=== PATIENT | female | born 1940 | race Caucasian/White ===

== ENCOUNTER 2019-07-06 13:11 | Inpatient (IN) | payer OTHER ==
[~2019-07-06] VITALS: Ht 162.5 cm; Wt 91.6 kg
--- NOTE | ~2019-07-06 | PR ---
[place], [place] PROGRESS NOTE NAME: JENNIFER TAVERAS UNIT #: [id number] ROOM: 315 DOCTOR: EVELYN SANTOS MD BIRTHDATE: [birth year] DOS: 07/10/2019 CHIEF COMPLAINT: "I think the bugs are getting worse." SUMMARY OF THE VISIT: The patient was interviewed as she was resting quietly in bed. She reported that she did not want to get up for breakfast or get anything to drink. She feels that the bugs are getting worse and they are trying to burst out of her skin. They no longer are in her eyes, but in her breast and her legs and are trying to cut off the circulation in her legs. MENTAL STATUS: She is alert and oriented with time gaps. Mood does seem to be overwhelmingly depressed and markedly delusional, almost fixated. Memory does have minor gaps. PLAN: I will increase the Zyprexa from 5 mg in the morning to 5 mg in the morning and at night, maintain Remeron, maintain Periactin and Vistaril. Continue to engage in individual and larios milieu activity, returning to the least restrictive environment when psychiatrically stable. EVELYN SANTOS MD CM:PNTRANS 1 33 EVELYN SANTOS MD 07/10/192032 interface
--- NOTE | ~2019-07-06 | PR ---
[place], [place] PROGRESS NOTE NAME: JENNIFER TAVERAS UNIT #: [id number] ROOM: 315 DOCTOR: EVELYN SANTOS MD BIRTHDATE: [birth year] DOS: 07/11/2019 CHIEF COMPLAINT: "I could use some more of that Nu Skin, but overall I think I'm better." SUMMARY OF THE VISIT: The patient was interviewed as she was sitting at the edge of the ____. She engaged readily in conversation and was fairly engaging. She did report on a positive note, she feels that the itching from the bugs is much less and overall the torment she feels because of the bug seems to have lessened. She is cautiously optimistic. MENTAL STATUS: She is alert and oriented with some time gaps. Mood does seem to be more euthymic. Affect is more appropriate. There is no jennifer, hypomania or gross psychosis. Memory has minor gaps. PLAN: I will go ahead and order Benadryl cream t.i.d. She requests some Nu Skin, will talk to nursing about this. We will continue her current psychotropic regimen, continue to engage in individual and larios milieu activity, returning to the least restrictive environment when psychiatrically stable. EVELYN SANTOS MD CM:PNTRANS [id number] EVELYN SANTOS MD 07/12/19 0233 interface
--- NOTE | ~2019-07-06 | WRIGHTHP ---
[place], [place] PATIENT HISTORY AND PHYSICAL EXAM [id number] UNIT #: [id number] ROOM: 315 DOCTOR: EVELYN SANTOS MD BIRTHDATE: [birth year] DOS: 07/08/2019 INITIAL PSYCHIATRIC EVALUATION CHIEF COMPLAINT: Oh, these bugs are horrible. They are all over my skin." HISTORY OF PRESENT ILLNESS: This is a 79-year-old white female who is a patient of Vineet Enrique, a nurse practitioner from [facility]. The patient was sent in because of ongoing tactile hallucinations. These have been ongoing now for many, many months. The patient is scratching herself almost to the point of bleeding and has multiple scabs and excoriations along her upper arms and her right breast. The patient has had multiple medication trials, none of which have impacted positively on stopping the behaviors. The patient does also endorse significant depression as well as ongoing anxiety because of the bugs. She is admitted now to rule out organic factors, to stabilize on medication, to engage in individual and larios milieu activity, returning to the least restrictive environment when psychiatrically stable. PAST MEDICAL HISTORY: Remarkable for fibromyalgia, hypertension, obesity and depression and anxiety. SOCIAL HISTORY: She does not drink alcohol, use illicit drugs or smoke cigarettes. ALLERGIES: She lists allergies to AMOXICILLIN, ISOSORBIDE, ATORVASTATIN, AND PROZAC. STRENGTHS: Ambulatory good verbal skills. WEAKNESSES: Poor coping skills, chronic psychiatric issues. MENTAL STATUS: She is alert and oriented to person, place and time. Mood does seem to be overwhelmingly depressed with anxious overtones and she is definitely experiencing significant tactile hallucinations. She seems very distraught and upset by the whole thing. Memory is intact. DIAGNOSIS: Major depression, recurrent with psychotic features. PLAN: I have done routine screening examinations which revealed a vitamin B12 level low at 237 and a vitamin D level low at 18.9. I will treat with vitamin D 5000 International Units daily and vitamin B12 injection 1000 mcg a month. I did start her on Periactin 4 mg t.i.d. and maintain her on low dose Atarax, which I will now increase to 50 mg q.i.d. We will engage in individual and larios milieu activity, returning to the least restrictive environment when psychiatrically stable. [place], [place] PATIENT HISTORY AND PHYSICAL EXAM NAME: JENNIFER TAVERAS UNIT #: [id number] ROOM: [facility] DOCTOR: EVELYN SANTOS MD BIRTHDATE: [birth year] EVELYN SANTOS MD CM:HISPHYS:PATIENT HISTORY AND PHYSICAL EXAMINATION 7 6 EVELYN SANTOS MD 07/08/19926 interface
--- NOTE | ~2019-07-06 | PR ---
[place], [place] PROGRESS NOTE NAME: JENNIFER TAVERAS UNIT #: [id number] ROOM: 315 DOCTOR: EVELYN SANTOS MD BIRTHDATE: [birth year] DOS: 07/13/2019 INTERVAL NOTE CHIEF COMPLAINT: "I think I am feeling a little better today." SUMMARY OF THE VISIT: The patient was interviewed as she was finishing her breakfast. She stopped and engaged in conversation. She seems to be yo-yoing in her responses, now stating that she is feeling better than the day before. She denies any side effects from the medicines themselves. We talked at length about changing some meds to fine tune things and she agreed. MENTAL STATUS: She is alert and oriented with some time gaps. Mood does seem to be strongly trending towards euthymia. Affect is much more appropriate. There is no jennifer, hypomania, or gross psychosis. Memory has some gaps. PLAN: I will discontinue her straight Ativan in lieu of Klonopin 1 mg t.i.d. My hope is that the longer half-life of the Klonopin will build up and maintain a consistent blood level, decreasing some of the anxiety and some of the symptoms surrounding the bug infestation delusion. We will continue to engage in individual and larios milieu activity, returning to the least restrictive environment when stable. EVELYN SANTOS MD CM:PNTRANS [id number] EVELYN SANTOS MD 07/13/19 1032 interface
--- NOTE | ~2019-07-06 | DS ---
[place], [place] DISCHARGE SUMMARY NAME: JENNIFER TAVERAS [facility] #: [id number] UNIT #: [id number] ROOM: 315 DOCTOR: EVELYN SANTOS MD BIRTHDATE: [birth year] DOS: 07/14/2019 CHIEF COMPLAINT: "Oh, these bugs are horrible. They are all over my skin." HISTORY OF PRESENT ILLNESS: This is a 79-year-old white female who is a patient of Vineet Enrique, a nurse practitioner from [facility]. The patient was sent into the [facility] because of ongoing visual and tactile hallucinations. These have been ongoing for many, many months. Despite multiple medication changes during this period of time, these symptoms have remained very tenacious and unwilling. The patient has been scratching herself to the point of bleeding and multiple scabs and excoriations all over her upper arms and her right breast. The patient has been feeling overwhelmingly depressed as well as anxious because of this and has not been able to function well because she is debilitated with this delusion. She is admitted now to rule out any organic factors to attempt to stabilize on medication, to engage in individual and larios milieu activity, returning to the least restrictive environment when psychiatrically stable. SUMMARY OF THE HOSPITAL COURSE: The patient was admitted to the unit where routine screening examinations revealed a vitamin B12 level that was low at 237 as well as a vitamin D level that was low at 18.9, vitamin D 5000 International Units daily and vitamin B12 injection 1000 mcg a month was given. She was started initially on Periactin 4 mg t.i.d., which was maintained with hydroxyzine 50 mg q.i.d. Subsequently, she was started on Remeron 15 mg at bedtime and Zyprexa 5 mg at bedtime. Remeron was maintained at this dose, but the Zyprexa was gradually increased to 5 mg twice a day and the Periactin was likewise increased to 4 mg q.i.d. The hope was that the antianxiety as well as antihistaminic effects would decrease any skin response to her scratching and prevent this vicious cycle from occurring. The antidepressant and the antipsychotic were utilized to break the psychotic symptoms and decrease her horrible negative cycle. Subsequently, she was started on Klonopin to take the place of a short-acting benzo and almost immediately had a benefit from the Klonopin. She herself mentioned that her daughter had a very positive response to the Klonopin and she felt that the Klonopin relax her enough that she was able to focus away from the bugs. She voiced a readiness and a willingness to go home, stating that overall she felt that the bugs had lessened and the itching and scratching had also lessened. She voiced no side effects from the medicines, noting no sedation or somnolence, no extrapyramidal symptoms or tardive dyskinesia. MENTAL STATUS AT DISCHARGE: She is alert and oriented to person, place, and time. Mood is euthymic. Affect is appropriate. There is no jennifer, hypomania or psychosis at this time. Short-term memory has mild gaps, but for the most part she is intact. FINAL DIAGNOSIS: Major depression, recurrent with psychotic features, severe. PLAN: All of her prescriptions have been e-scribed to [facility] in [place] except her Klonopin, which was printed. She will have followup in the community with Vineet Enrique at [facility]. At the time of discharge, she [place], [place] DISCHARGE SUMMARY NAME: JENNIFER TAVERAS UNIT #: [id number] ROOM: 315 DOCTOR: EVELYN SANTOS MD BIRTHDATE: [birth year] was both psychiatrically and medically stable. EVELYN SANTOS MD CM:DISCHARG 8 09 EVELYN SANTOS MD 07/14/19 180 interface
--- NOTE | ~2019-07-06 | PR ---
[place], [place] PROGRESS NOTE NAME: JENNIFER TAVERAS UNIT #: [id number] ROOM: 315 DOCTOR: EVELYN SANTOS MD BIRTHDATE: [birth year] DOS: 07/12/2019 CHIEF COMPLAINT: "Look, see this blue spot, this is one of the bugs trying to come out." SUMMARY OF THE VISIT: The patient was interviewed as she was sitting sipping on tea. She reported that the bugs are still present. She at one point stated she was feeling better and now feels the things are worse. MENTAL STATUS: She is alert and oriented. Mood does seem to be slightly trending towards euthymia and affect is more appropriate. There is no jennifer, hypomania. There is still this delusion regarding the bugs. PLAN: I will discontinue the Benadryl cream and try Caladryl. We will maintain her current psychotropics include the Remeron, the Zyprexa, the Periactin and the Vistaril. We will monitor and support. EVELYN SANTOS MD CM:PNTRANS 0925 1022 EVELYN SANTOS MD 07/12/19 1021 interface
--- NOTE | ~2019-07-06 | EKG ---
[place], [place] ELECTROCARDIOGRAM REPORT NAME: JENNIFER TAVERAS UNIT #: [id number] ROOM: 315 DOCTOR: SPENCER DRAFT REPORT BIRTHDATE: [birth year] [facility] Test Date: 2019-07-08 Test Time: 09:32:48 Pat Name: JENNIFER TAVERAS Department: Room: [facility] 2 Gender: F Customer Service Advisor: : [id number] Requested By: LUCÍA SOLIZ Order Number: [id number] Reading MD: Ramin Mo MD Measurements Intervals [place] Rate: 60 P: 0 NM: 195 QRS: 5 QRSD: 91 T: 36 QT: 423 QTc: 423 Interpretive Statements Sinus rhythm Atrial premature complex Electronically Signed On 07-08-2019 13:41:22 PDT by Ramin Mo MD CM:EKGRPT:ELECTROCARDIOGRAM REPORT [id number] LUCÍA MAXWELL DRAFT REPORT LUCÍA SOLIZ DO
[2019-07-06] MEDS ORDERED: ARICEPT5 M1 PO (14:17)
[2019-07-06] MEDS ORDERED: ATIVAN2 M1 PO (14:18)
[2019-07-06] MEDS ORDERED: NATURE'S BLEND500 M1 PO (14:26)
[2019-07-06] MEDS ORDERED: SALINE NASAL14.1 GM NAS (14:27)
[2019-07-06] MEDS ORDERED: ZANTAC 150150 MG PO (14:28)
[2019-07-06] MEDS ORDERED: TRIAMTERENE-HC1 EAC1 PO (14:28)
[2019-07-06] MEDS ORDERED: VITAMIN D22000 UNIT PO (14:29)
[2019-07-06] MEDS ORDERED: LOVAZA1 GM PO (14:29)
[2019-07-06] MEDS ORDERED: ENALAPRIL10 MG PO (14:29)
[2019-07-06] MEDS ORDERED: ASPIR LOW81 MG PO (14:30)
[2019-07-06] MEDS ORDERED: ZOLOFT100 MG PO (14:30)
[2019-07-06] MEDS ORDERED: IRON325 M1 PO (14:31)
[2019-07-07] MEDS ORDERED: VASCEPA1 G1 PO (14:45)
[2019-07-07] MEDS ORDERED: OMEPRAZOLE MAGN20 MG PO (14:47)
[2019-07-07 14:52] VITALS: BP 125/67
[2019-07-07 16:51] VITALS: BP 125/67
[2019-07-07 17:29] LABS: BASO % 0.6 % (0.0-1.0); EOS # 0.1 10*3/uL (0.0-0.4); EOS % 1.8 % (1.0-4.0); HEMATOCRIT 30.6 % (37.0-47.0); HEMOGLOBIN 8.8 g/dl (12.0-16.0); LYMPH # 2.6 10*3/uL (1.3-4.4); LYMPH % 38.7 % (27.0-41.0); MEAN CELL VOLUME 78.7 fl (81.0-99.0); MEAN CORPUSCULAR HGB 22.6 pg (27.0-31.0); MEAN CORPUSCULAR HGB CONC 28.8 g/dl (33.0-37.0); MEAN PLATELET VOLUME 9.9 fl (9.6-12.3); MONO # 0.5 10*3/uL (0.1-1.0); MONO % 8.2 % (3.0-9.0); NEUT # 3.3 10*3/uL (2.3-7.9); NEUT % 50.5 % (47.0-73.0); PLATELET COUNT AUTOMATED 265 10*3/uL (130-400); RED BLOOD COUNT 3.89 10*6/uL (4.10-5.10); RED CELL DISTRI WIDTH 21.8 % (0-14.5); WHITE BLOOD COUNT 6.6 10*3/uL (4.8-10.8)
[2019-07-07 18:00] LABS: ALBUMIN 3.4 gm/dl (3.1-4.5); ALKALINE PHOSPHATASE 81 U/L (45-117); BUN 9 mg/dl (7-24); CHLORIDE 107 mmol/L (98-107); POTASSIUM 3.5 mmol/L (3.5-5.1); SGOT/AST 13 IU/L (3-35); SGPT/ALT 13 U/L (12-78); SODIUM 141 mmol/L (136-145); TOTAL PROTEIN 6.9 gm/dL (6.4-8.2)
[2019-07-07 18:09] LABS: VITAMIN D, 25-HYDROXY 18.9 ng/mL (30-100)
[2019-07-07 19:49] VITALS: BP 117/62
[2019-07-08 06:46] LABS: CHOLESTEROL 185 mg/dL (<200); TRIGLYCERIDES 71 mg/dl (<150); VLDL CHOLESTEROL 14 mg/dL (6-40)
[2019-07-08 06:47] LABS: HDL CHOLESTEROL 53 mg/dl (40-60); LDL CHOLESTEROL 118 mg/dL (9-159)
[2019-07-08 07:52] VITALS: BP 127/72
[2019-07-08] MEDS ORDERED: PROAIR HFA8.5 GM INH (16:28)
[2019-07-08] MEDS ORDERED: NITROSTAT0.4 MG SL (16:30)
[2019-07-08 18:07] LABS: BILIRUBIN NEGATIVE (NEGATIVE); BLOOD 1+ (NEGATIVE); CLARITY SL CLOUDY (CLEAR); COLOR YELLOW (YELLOW); GLUCOSE NEGATIVE (NEGATIVE); KETONE NEGATIVE (NEGATIVE); LEUKO ESTERASE 2+ (NEGATIVE); NITRITE NEGATIVE (NEGATIVE); SPECIFIC GRAVITY 1.015 (1.005-1.030); UROBILINOGEN 0.2 E.U./dl (0.2-1.0)
[2019-07-08 18:18] LABS: BACTERIA 3+
[2019-07-08 19:44] VITALS: BP 106/69
[2019-07-09 07:36] VITALS: BP 123/86
[2019-07-09] MEDS ORDERED: L-ARGININE500 MG PO (13:01)
[2019-07-09 19:36] VITALS: BP 122/70
[2019-07-10 07:57] VITALS: BP 111/54
[2019-07-10 20:00] VITALS: BP 123/67
[2019-07-11 07:53] VITALS: BP 146/74
[2019-07-11 20:00] VITALS: BP 109/65
[2019-07-12 08:16] VITALS: BP 140/75
[2019-07-12 19:16] VITALS: BP 126/60
[2019-07-13 07:43] VITALS: BP 149/55
[2019-07-13 19:16] VITALS: BP 110/62
[2019-07-14 08:09] VITALS: BP 111/67
[2019-07-14] MEDS ORDERED: CLONAZEPAM1 MG PO (09:03)
[2019-07-14] MEDS ORDERED: VITAMIN D5000 UNI1 PO (09:03)
[2019-07-14] MEDS ORDERED: MIRTAZAPINE15 M2 PO (09:03)
[2019-07-14] MEDS ORDERED: CYPROHEPTADINE H4 M1 PO (09:03)
[2019-07-14] MEDS ORDERED: RIVASTIGMINE1 EACH T (09:03)
[2019-07-14] MEDS ORDERED: HYDROXYZINE PAM25 M1 PO (09:03)
[2019-07-14] MEDS ORDERED: OLANZAPINE5 MG PO ×2 (09:03)
[2019-07-14] MEDS ORDERED: B121000 MCG/1 IM (09:03)
== END 2019-07-14 12:31 | disposition home or self-care (01) | DRG 885 ==
LOC: 3N 13:11
PROVIDERS: ADMIT Psychiatry & Neurology Psychiatry
DX: F33.3 Major depressive disorder, recurrent, severe with psychotic symptoms (principal); F23 Brief psychotic disorder; E44.0 Moderate protein-calorie malnutrition; N39.0 Urinary tract infection, site not specified; T14.8XXA Other injury of unspecified body region, initial encounter; D50.9 Iron deficiency anemia, unspecified; I10 Essential (primary) hypertension; M79.7 Fibromyalgia; E66.9 Obesity, unspecified; F41.9 Anxiety disorder, unspecified; F42.4 Excoriation (skin-picking) disorder; E55.9 Vitamin D deficiency, unspecified; E53.8 Deficiency of other specified B group vitamins; R31.9 Hematuria, unspecified; R51 Headache; A49.8 Other bacterial infections of unspecified site; X58.XXXA Exposure to other specified factors, initial encounter; Z90.49 Acquired absence of other specified parts of digestive tract; Z79.82 Long term (current) use of aspirin; Z79.899 Other long term (current) drug therapy; Z88.0 Allergy status to penicillin; Z88.8 Allergy status to other drugs, medicaments and biological substances; Z68.34 Body mass index [BMI] 34.0-34.9, adult; Y93.89 Activity, other specified; Y92.89 Other specified places as the place of occurrence of the external cause; Y99.8 Other external cause status